=== PATIENT | female | born 1950 | race Caucasian/White ===

== ENCOUNTER 2019-02-04 13:39 | Emergency (ER) | payer MEDICARE, SELFPAY ==
[2019-02-04 13:40] VITALS: BP 151/89; PULSE 62; RESP 18; TEMP 36.7; O2SAT 98; BMI 36.0
--- NOTE | 2019-02-04 14:06 | ED.DCSUM_ITS ---
- ER Visit Summary Date of Service: 02/04/19 Chief Complaint: Pain History of Present Illness: The patient is a 68 F who presents with pain. Patient complains of chronic pain for years. She is in pain management. She has a history of fibromyalgia and osteoarthritis. She also has had diarrhea for 4 to 6 months. She states her pain is been worse because she also recently pulled a muscle in her groin. She states she was seen at [facility] last week. She states she just does not know what else to do and she does not have a primary care physician. Physical Examination: Afebrile vitals unremarkable No distress Heart regular rate and rhythm Lungs are clear Abdomen soft Alert Test Results: Not indicated Emergency Department Course and Treatment: Patient presents with chronic pain of years. I explained that I have little else to offer her here in the emergency department in regards to this. She then began to talk about her concerns about her home. She states that her holes in the floor. She has weakness and has difficulty ambulating. This is also been chronic. We will have social work see her in regards to these issues. She was also given a referral for primary care physician. Patient discharged. Treatment Plan: [] Disposition: Discharge Impression: Chronic pain Debility This note was generated with [employer] dictation software. It may contain incorrect words, spelling, and punctuation that were not noted in review of the chart prior to signing ED Disposition - Plan for ED Patient: Referrals: Care Physician,No Primary [Primary Care Provider] -
--- NOTE | 2019-02-04 14:06 | ED.DEP ---
ED Disposition - Plan for ED Patient: Instructions: ED Chronic Pain Management Referrals: Care Physician,No Primary [Primary Care Provider] - Conner Perez MD [STAFF PHYSICIAN] -
--- NOTE | 2019-02-04 15:15 | CM.ED ---
Social Work Assessment Referral Date: 02/04/19 Date of Assessment: 02/04/19 Informant: DR. RICKETTS Reason for Consult: D/C PLANNING/RESOURCES Information obtained from: PATIENT AND PATIENT'S [facility] [phone] VIA TELEPHONE CALL. Living Arrangements: PATIENT LIVES HOME ALONE IN A MOBILE HOME. DME: WALKER Employment/Financial: RETIRED/DISABLED, SON STATES PATIENT RECEIVES SOCIAL SECURITY AND PENSIONS FROM LATE . Supports: PATIENT REPORTS LIMITED SUPPORTS. PATIENT STATES CALLED THE [facility] TO DISCUSS PASSPORTS SERVICES AND WAS INFORMED THEY WOULD BE CONTACTING HER IN THE NEXT FEW DAYS. Social/Family Stressors: PATIENT REPORTS HOLES IN THE FLOORS OF HER MOBILE HOME. PATIENT STATES DOES NOT HAVE SAFE PATHWAYS TO GET THROUGH THE HOUSE. 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 Mental Health History: PATIENT ADMITS TO HX OF ANXIETY AND DEPRESSION. Substance Abuse History: PATIENT DENIES HX OF SUBSTANCE ABUSE. Interventions: SOCIAL SERVICE ASSESSMENT WILL MAKE REFERRAL TO ADULT PROTECTIVE SERVICES REGARDING HOME CONDITIONS AND SAFETY CONCERNS. PATIENT GAVE PERMISSION FOR THIS WORKER TO CALL SON TO SET UP TRANSPORT HOME AND DISCUSS D/C PLANNING. Assessment: PATIENT IS A 68 Y/O FEMALE WHO PRESENTS TO ED BY [facility] FOR PAIN AND DEBILITY. PATIENT LIVES HOME ALONE IN A MOBILE HOME WITH STEPS TO ENTER THE HOME. PATIENT STATES HAS WALKER IN THE HOME, BUT DOES NOT HAVE CLEAR PATHWAYS TO GET THROUGH THE HOME. PATIENT REPORTS ISSUES WITH AMBULATION. PATIENT STATES HOME IS NOT IN GOOD CONDITION AND REPORTS HAS MULTIPLE HOLES IN THE IGOR. PATIENT STATES HAS BEEN IN CONTACT WITH THE [facility] AND IS WAITING FOR ASSESSMENT. PATIENT STATES DOES NOT HAVE MEDICAID AND BELIEVES TO BE OVER INCOME. DISCUSSED SAFE D/C PLANNING. PATIENT REFUSING USP AND STATES DOES NOT HAVE THE MONEY TO PRIVATELY PAY FOR USP OR ASSISTED LIVING. PATIENT GAVE PERMISSION FOR THIS WORKER TO CALL [facility] TO DISCUSS CONCERNS AND SAFE D/C PLANNING. CALL TO PATIENT'S SON. DISCUSSED CONCERNS WITH PATIENT'S HOME CONDITION AND INFORMED THIS WORKER WILL BE MAKING A REFERRAL TO ADULT PROTECTIVE SERVICES. SON IN AGREEMENT AND STATES PATIENT IS A HOARDER AND HE HAS ATTEMPTED SEVERAL TIMES TO ASSIST PATIENT IN CLEANING UP THE HOME. SON AWARE OF THE CONDITION OF THE HOME. SON WITH QUESTIONS REGARDING MEDICAID AND USP PLACEMENT. ALL QUESTIONS ANSWERED. SON PROVIDED WITH CONTACT INFORMATION FOR MEDICAID. SON VOICED CONCERNS WITH PATIENT'S AMBULATION. INFORMED SON THIS WORKER WILL ASK NURSING TO AMBULATE PATIENT. SON REPORTS WILL BE IN AFTER 5P TO TRANSPORT PATIENT HOME AND REPORTS NO OTHER TRANSPORTATION AVAILABLE FOR PATIENT AT THIS TIME. UPDATED NURSING AND PHYSICIAN ON THE ABOVE. PLAN: HOME, RESOURCES PROVIDED, REFERRAL TO ADULT PROTECTIVE SERVICES.
--- NOTE | 2019-02-04 15:52 | CM.ED ---
SOCIAL WORK CALL TO ADULT [facility]OTECTIVE SERVICES. REPORT MADE TO [place] REGARDING SAFETY CONCERNS FOR PATIENT IN THE HOME DUE TO HOME CONDITIONS-HOLES IN THE FLOOR, HOARDING. CLEMENCIA BROWN, DIRECTOR GENERAL, CAR GROOMER.
[2019-02-04 17:19] VITALS: PULSE 64; RESP 18
== END 2019-02-04 17:20 | disposition home or self-care (01) ==
LOC: ED 14:37
PROVIDERS: Emergency Provider Emergency Medicine
DX: G89.29 Other chronic pain (principal); R53.81 Other malaise; R19.7 Diarrhea, unspecified; S70.10XA Contusion of unspecified thigh, initial encounter; X58.XXXA Exposure to other specified factors, initial encounter; Y93.9 Activity, unspecified; Y92.9 Unspecified place or not applicable; M79.7 Fibromyalgia; M19.90 Unspecified osteoarthritis, unspecified site; E11.9 Type 2 diabetes mellitus without complications; Z79.84 Long term (current) use of oral hypoglycemic drugs; Z79.899 Other long term (current) drug therapy; Z72.0 Tobacco use
CPT/HCPCS: 99284

== ENCOUNTER → 2023-07-08 | Outpatient (REF) | payer MEDICARE, MEDICAID, SELFPAY ==
[2023-07-08 10:22] LABS: Hematocrit 41.4 % (37-47); Hemoglobin 12.9 g/dL (12.0-15.0); Mean Corp Hgb Conc 31.2 g/dL (32-36); Mean Corpuscular Hgb 30.9 pg (27.0-32.0); Mean Platelet Vol. 11.7 fl (6.2-12.0); Platelet Count 229 K/mm3 (150-450); RBC Distribution Width CV 13.4 % (11.6-14.6); RBC Distribution Width SD 49.1 fl (35.1-43.9); Red Blood Count 4.18 M/mm3 (4.2-5.4)
== END ==
LOC: OLS.ACW300 06:04
PROVIDERS: Visit Provider Family Medicine
DX: R52 Pain, unspecified (principal); G31.1 Senile degeneration of brain, not elsewhere classified; A41.9 Sepsis, unspecified organism; M62.81 Muscle weakness (generalized); R41.841 Cognitive communication deficit
CPT/HCPCS: 36415; 85027

== ENCOUNTER → 2023-07-17 | Outpatient (REF) | payer MEDICARE, MEDICAID, SELFPAY | LOC: OLS.ACW300 02:00 | PROVIDERS: Visit Provider Family Medicine | DX: R19.7 Diarrhea, unspecified (principal) | CPT/HCPCS: 82274 ==

== ENCOUNTER → 2024-02-08 | Outpatient (REF) | payer MEDICARE, SELFPAY ==
[2024-02-08 08:57] LABS: Hematocrit 42.1 % (37-47); Hemoglobin 13.3 g/dL (12.0-15.0); Mean Corp Hgb Conc 31.6 g/dL (32-36); Mean Corpuscular Hgb 32.4 pg (27.0-32.0); Mean Corpuscular Volume 102.4 fL (81-99); Mean Platelet Vol. 11.4 fl (6.2-12.0); Platelet Count 202 K/mm3 (150-450); RBC Distribution Width CV 12.1 % (11.6-14.6); RBC Distribution Width SD 45.8 fl (35.1-43.9); Red Blood Count 4.11 M/mm3 (4.2-5.4); White Blood Count 9.4 K/mm3 (4.4-11.0)
[2024-02-08 10:05] LABS: Anion Gap 7 (5-15); BUN 28 mg/dL (7-18); BUN/Creat Ratio 31.7 RATIO (10-20); Chloride 109 mmol/L (98-107); Creatinine, Serum 0.88 mg/dL (0.55-1.02); EST Glomerular Filtration Rate 67 mL/min (>60); Est Glom Filt Rate - Afr Amer 81 mL/min (>60); Glucose 120 mg/dL (74-106); Potassium 4.5 mmol/L (3.5-5.1); Sodium Level 141 mmol/L (136-145)
[2024-02-08 11:08] LABS: Hemoglobin A1c 6.6 % (3.8-5.6)
== END ==
LOC: OLS.ACW300 05:00
PROVIDERS: Visit Provider Family Medicine
DX: E11.65 Type 2 diabetes mellitus with hyperglycemia (principal)
CPT/HCPCS: 36415; 80048; 83036; 85027

== ENCOUNTER → 2024-04-26 | Outpatient (REF) | payer MEDICARE, SELFPAY ==
[2024-04-26 09:50] LABS: Absolute Lymphocyte Count 3.15 X10^3/uL (0.83-4.51); Absolute Neutrophil Count 5.8 X10^3/uL (2.0-7.7); Basophil# 0.08 X10^3/uL; Basophil% 0.8 % (0-1); Eosinophils% 3.8 % (0-5); Hematocrit 37.7 % (37-47); Hemoglobin 12.2 g/dL (12.0-15.0); Lymphocyte # 3.15 X10^3/ul (0.83-4.51); Lymphocyte % 29.8 % (19-41); Mean Corp Hgb Conc 32.4 g/dL (32-36); Mean Corpuscular Hgb 31.4 pg (27.0-32.0); Mean Corpuscular Volume 97.2 fL (81-99); Mean Platelet Vol. 11.9 fl (6.2-12.0); Monocyte# 0.99 X10^3/uL; Monocyte% 9.4 % (0-10); NRBC Flagged by Analyzer 0 % (0-5); Neutrophil # 5.83 X10^3/uL (2.7-7.7); Neutrophil % 55.1 % (47-70); Platelet Count 177 K/mm3 (150-450); RBC Distribution Width CV 12.3 % (11.6-14.6); RBC Distribution Width SD 44.1 fl (35.1-43.9); Red Blood Count 3.88 M/mm3 (4.2-5.4); White Blood Count 10.6 K/mm3 (4.4-11.0)
[2024-04-26 10:06] LABS: ALB/GLOB Ratio 0.9 RATIO (0.9-2.4); AST(SGOT) 7 U/L (15-37); Alanine Aminotransfer ALT/SGPT 11 U/L (13-56); Albumin, Serum 2.8 g/dL (3.2-5.0); Alkaline Phosphatase 81 U/L (45-117); Anion Gap 6 (5-15); BUN 20 mg/dL (7-18); BUN/Creat Ratio 23.2 RATIO (10-20); Calcium,Total 8.8 mg/dL (8.5-10.1); Chloride 101 mmol/L (98-107); Creatinine, Serum 0.86 mg/dL (0.55-1.02); EST Glomerular Filtration Rate 69 mL/min (>60); Est Glom Filt Rate - Afr Amer 83 mL/min (>60); Glucose 152 mg/dL (74-106); Potassium 4.2 mmol/L (3.5-5.1); Protein, Total 5.8 g/dL (6.4-8.2); Sodium Level 133 mmol/L (136-145)
== END ==
LOC: OLS.ACW300 05:00
PROVIDERS: Referring Provider Family Medicine; Visit Provider Family Medicine
DX: N39.0 Urinary tract infection, site not specified (principal); A41.9 Sepsis, unspecified organism; R53.1 Weakness; M62.81 Muscle weakness (generalized); R27.9 Unspecified lack of coordination
CPT/HCPCS: 36415; 80053; 85025

== ENCOUNTER → 2024-04-29 | Outpatient (REF) | payer MEDICARE, SELFPAY ==
[2024-04-29 09:02] LABS: Color, Urine Yellow (Yellow)
[2024-04-29 09:03] LABS: Glucose, Dipstick NEGATIVE (Normal); Ketone-Dipstick Negative (Negative); Nitrite-Dipstick Positive (Negative); Occult Blood-Urine 10 /ul (Negative); Protein-Dipstick 15 mg/dl (Negative); Specific Gravity, Urine 1.015 (1.002-1.030); Urine Bilirubin Dipstick Negative (Negative); Urine Clarity Sl Cldy (Clear); Urine Urobilinogen Normal (Normal)
[2024-04-29 09:04] LABS: Leukocyte Esterase-Dipstick 500 /ul (Negative)
== END ==
LOC: OLS.ACW300 05:00
PROVIDERS: PCP Family Medicine; Referring Provider Family Medicine; Visit Provider Family Medicine
DX: N39.0 Urinary tract infection, site not specified (principal)
CPT/HCPCS: 81002; 87077; 87086; 87088; 87186